=== PATIENT | female | born 2005 | race Caucasian/White ===

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

== ENCOUNTER 2024-02-17 05:09 | Emergency (ER) | payer OTHER, SELFPAY ==
[2024-02-17 05:25] VITALS: BP 118/56; PULSE 87; RESP 16; TEMP 36.6; O2SAT 99; BMI 23.3
--- NOTE | 2024-02-17 05:29 | ED_ITS ---
HPI - General Adult General Chief complaint: Urogenital-Female Stated complaint: uti Time Seen by Provider: 02/17/24 05:11 Source: patient Mode of arrival: Ambulatory History of Present Illness HPI narrative: 19-year-old female with 3 days of dysuria, frequency, urgency. No back pain. No fevers. No vomiting. No vaginal bleeding. No change in bowel habits. Had a urinary tract infection 1 year ago. Symptoms improved after antibiotics. Has been on [id number] azo for the discomfort for the past 3 days. Related Data Previous Rx's Medication Instructions Recorded nitrofurantoin 100 mg PO Q12H 5 days #10 caps 02/17/24 monohydrate/macrocrystals 100 mg capsule (Macrobid) Allergies Allergy/AdvReac Type Severity Reaction Status Date / Time No Known Drug Allergies Allergy Verified 01/10/23 06:01 Review of Systems Review of Systems Narrative: See HPI Patient History Medical History POTS (postural orthostatic tachycardia syndrome) Social History Smoking Status: Current every day smoker Smoking Status: Current every day smoker tobacco type: vaping alcohol intake frequency: 0-2 drinks per day Exam Initial Vital Signs Initial Vital Signs: Vital Signs Temperature 97.8 F 02/17/24 05:25 Pulse Rate 87 02/17/24 05:25 Respiratory Rate 16 02/17/24 05:25 Blood Pressure 118/56 L 02/17/24 05:25 Pulse Oximetry 99 02/17/24 05:25 Oxygen Delivery Method Room Air 02/17/24 05:25 Const General: cooperative and comfortable HENMT Head: normal to inspection and normocephalic GI Inspection: non-distended Back/Spine/Pelvis Back: No CVA tenderness Course Orders Ordered: ED Orders 02/17/24 05:14 Urine Microscopic Stat Discontinued Medications Nitrofurantoin Macrocrystals (Nitrofurantoin Er 100 Mg Capsule) 100 mg PO NOW ONE Stop: 02/17/24 05:30 Vital Signs Vital signs: Vital Signs - 8 hr 02/17/24 05:25 Temperature 97.8 F Pulse Rate 87 Respiratory Rate 16 Blood Pressure 118/56 L Pulse Oximetry 99 Oxygen Delivery Method Room Air Medical Decision Making Medical Records Medical records reviewed: Yes I reviewed the patient's medical records. Lab Data Lab results reviewed: Yes I reviewed the patient's lab results. Labs: Point of Care Testing Test Results Negative Urine Dip Bedside Urine Glucose 500 mg/dl Bedside Urine Bilirubin +++ 4 Bedside Urine Ketone ++ 40 Urine Specific [place] 1.025 Bedside Urine Occult Blood +++ Bedside Urine pH 5.0 Bedside Urine Protein +++ 300 Bedside Urine Urobilinogen 3+ 8mg Bedside Urine Nitrite + Positive Bedside Urine Leukocytes +++ 500 Esterase Point of care testing: Point of Care Testing Test Results Negative Urine Dip Bedside Urine Glucose 500 mg/dl Bedside Urine Bilirubin +++ 4 Bedside Urine Ketone ++ 40 Urine Specific [place] 1.025 Bedside Urine Occult Blood +++ Bedside Urine pH 5.0 Bedside Urine Protein +++ 300 Bedside Urine Urobilinogen 3+ 8mg Bedside Urine Nitrite + Positive Bedside Urine Leukocytes +++ 500 Esterase MDM Narrative Medical decision making narrative: History and physical exam and urinalysis consistent with a UTI. Low suspicion for pyelonephritis based on her exam. Tolerating oral intake. Urine culture pending at the time of discharge. Review of her medical record shows that she had a pansensitive E coli approximately 1 year ago. Will start on Macrobid. First dose given here in the emergency department. Prescription sent to pharmacy of her choice. She was given return precautions. She expressed understanding and agreement with the plan. Discharge Plan Departure Patient Disposition: Home Clinical Impression: Urinary tract infection Instructions: DI for Urinary Tract Infection (UTI) Activity Restrictions/Additional Instructions: There is a urine culture pending at the time of your discharge and we will contact you if we need to change any antibiotics based on the results of this. Start taking the antibiotics that you were prescribed this morning as directed. Return to the emergency department for new or worsening symptoms. Prescriptions: New nitrofurantoin monohyd/m-cryst [Macrobid] 100 mg capsule 100 mg PO Q12H 5 Days Qty: 10 0RF Rx Instructions: must administer with a meal/food Referrals: Arsalan Vinson MD [Primary Care Provider] - Stand Alone Forms: Patient Portal/API/Survey
[2024-02-17] MEDS: NITROFURANTOIN ER 100 MG CAPSULE PO (05:33)
[2024-02-17 05:38] LABS: Bacteria Urine Occasional (0-1); Culture Indicated Urine Specimen Cultured; RBC Urine >100/HPF (0-5/HPF); Squamous Epithelial Cell Urine 1-5 /HPF (0-5/HPF); Urine Volume 10mL (spun); WBC Urine 10-30/HPF (0-5/HPF)
== END 2024-02-17 05:40 | disposition home or self-care (01) ==
PROVIDERS: Emergency Provider Emergency Medicine; PCP Pediatrics
DX: N39.0 Urinary tract infection, site not specified (principal)
CPT/HCPCS: 81003; 81015; 81025; 87086; 99283

== ENCOUNTER 2024-05-28 13:37 | Emergency (ER) | payer OTHER, SELFPAY ==
[2024-05-28 13:43] VITALS: BP 115/68; PULSE 83; RESP 16; TEMP 36.5; O2SAT 98; BMI 22.2
--- NOTE | 2024-05-28 15:00 | ED_ITS ---
HPI - General Adult <Ashley Agarwal PA-C - Last Filed: 05/28/24 16:29> General Chief complaint: Abdominal Pain Stated complaint: Lower stomach pain . sent from [facility] Time Seen by Provider: 05/28/24 14:03 Source: patient Mode of arrival: Ambulatory History of Present Illness HPI narrative: 19-year-old female presents to the ED with 3 weeks of right-sided lower back pain radiating sometimes to the front. No fever, chills, chest pain, shortness of breath, nausea, vomiting, diarrhea, constipation, dysuria, lightheadedness, dizziness, syncope. Patient is on control Sprintec. Patient is concerned that her symptoms are due to ovarian cysts. Patient states that she has never had an ultrasound or been tested for it. No trauma. Related Data Allergies Allergy/AdvReac Type Severity Reaction Status Date / Time No Known Drug Allergies Allergy Verified 01/10/23 06:01 Review of Systems <Ashley Agarwal PA-C - Last Filed: 05/28/24 16:29> Constitutional Constitutional: Denies chills, Denies fatigue, Denies fever(s), Denies frequent falls, Denies lethargy and Denies weakness Eyes Eyes: Denies change in vision, Denies eye discharge, Denies irritation and Denies loss of vision ENT Ears, Nose, Mouth, and Throat: Denies change in voice, Denies dizziness, Denies neck pain, Denies sore throat and Denies throat swelling Cardiovascular Cardiovascular: Denies chest pain, Denies irregular heart rhythm, Denies lightheadedness, Denies palpitations, Denies dyspnea, Denies dyspnea on exertion and Denies orthopnea Respiratory Respiratory: Denies cough, Denies dyspnea, Denies dyspnea on exertion and Denies wheezing Gastrointestinal Gastrointestinal: Denies abdominal pain, Denies change in bowel habits, Denies diarrhea, Denies nausea and Denies vomiting Musculoskeletal Musculoskeletal: Reports back pain, Denies neck pain and Denies numbness Integumentary/Breasts Skin/Breast: Denies pruritus, Denies erythema, Denies rash and Denies wounds Neurologic Neurologic: Denies behavioral changes, Denies confusion, Denies dizziness, Denies frequent falls, Denies loss of vision, Denies numbness and Denies weakness Psychiatric Psychiatric: Denies anxiety, Denies behavioral changes, Denies confusion, Denies depression, Denies homicidal ideation and Denies suicidal ideation Endocrine Endocrine: Denies fatigue, Denies flushing and Denies palpitations Hematologic/Lymphatic Hematologic/Lymphatic: Denies easy bruising Allergic/Immunologic Allergic/Immunologic: Denies urticaria, Denies throat swelling and Denies wheezing Patient History <Ashley Agarwal PA-C - Last Filed: 05/28/24 16:29> Medical History POTS (postural orthostatic tachycardia syndrome) tobacco type: vaping alcohol intake frequency: 0-2 drinks per day Exam <Ashley Agarwal PA-C - Last Filed: 05/28/24 16:29> Narrative Exam Narrative: Const General:?cooperative, healthy appearing and comfortable HENTX Head:?normal to inspection Ears:?hearing grossly normal bilaterally Nose:?external nose normal Face and sinus:?normal facial exam and sinuses nontender Mouth:?oral mucosae normal Throat:?posterior oropharynx normal Eyes General:?appearance normal, both eyes and all related structures Neck Neck:?normal visual inspection and no lymphadenopathy noted Resp Effort & Inspection:?normal respiratory effort Auscultation:?clear to auscultation bilaterally Cardio Rate:?regular rate Rhythm:?regular rhythm GI Abdomen is soft, nontender, nondistended. No CVA tenderness Neuro General:?patient alert, patient awake and patient oriented x3 Initial Vital Signs Initial Vital Signs: Vital Signs Temperature 97.7 F 05/28/24 13:43 Pulse Rate 83 05/28/24 13:43 Respiratory Rate 16 05/28/24 13:43 Blood Pressure 115/68 05/28/24 13:43 Pulse Oximetry 98 05/28/24 13:43 Oxygen Delivery Method Room Air 05/28/24 13:43 <Johnathan Velasquez MD - Last Filed: 05/29/24 07:07> Initial Vital Signs Initial Vital Signs: Vital Signs Temperature 97.7 F 05/28/24 13:43 Pulse Rate 83 05/28/24 13:43 Respiratory Rate 16 05/28/24 13:43 Blood Pressure 115/68 05/28/24 13:43 Pulse Oximetry 98 05/28/24 13:43 Oxygen Delivery Method Room Air 05/28/24 13:43 Course <Ashley Agarwal PA-C - Last Filed: 05/28/24 16:29> Vital Signs Vital signs: Vital Signs - 8 hr 05/28/24 13:43 Temperature 97.7 F Pulse Rate 83 Respiratory Rate 16 Blood Pressure 115/68 Pulse Oximetry 98 Oxygen Delivery Method Room Air <Johnathan Velasquez MD - Last Filed: 05/29/24 07:07> Vital Signs Vital signs: Vital Signs - 8 hr 05/28/24 13:43 Temperature 97.7 F Pulse Rate 83 Respiratory Rate 16 Blood Pressure 115/68 Pulse Oximetry 98 Oxygen Delivery Method Room Air Medical Decision Making <Ashley Agarwal PA-C - Last Filed: 05/28/24 16:29> MDM Narrative Medical decision making narrative: 19-year-old female presents to the ED with 3 weeks of right-sided lower back pain radiating sometimes to the front. Given patient's presentation, physical exam, unlikely ovarian cysts. Patient's symptoms are more likely consistent with a musculoskeletal sprain/strain of the lower back. Benign abdomen. Counseled patient on ovarian cysts, rupture and symptoms. Recommend follow-up with PCP, taking ibuprofen, Tylenol for symptoms. ED return precautions were discussed with patient. Patient verbalized understanding. Medical records reviewed: Yes Discharge Plan Departure Patient Disposition: Home Clinical Impression: Back pain Qualifiers: Back pain location: low back pain Chronicity: acute Back pain laterality: right Sciatica presence: without sciatica Qualified Code(s): M54.50 - Low back pain, unspecified Instructions: DI for Low Back Pain Activity Restrictions/Additional Instructions: You were evaluated in the ED today for lower back pain. Your symptoms are likely due to a back muscle strain. You may take Tylenol, ibuprofen for pain relief. Please follow-up with your PCP as soon as possible. Return to the ED if you have worsening symptoms, numbness, tingling, weakness, urinary difficulties. Referrals: Arsalan Vinson MD [Primary Care Provider] - Stand Alone Forms: Patient Portal/API/Survey ED Sign-out <Johnathan Velasquez MD - Last Filed: 05/29/24 07:07> Cosign ED Attending Annabelleature Attestation: I was immediately available in the department for consultation. This documentation has been reviewed and I agree with assessment and plan. Supervised by Johnathan Velasquez MD
== END 2024-05-28 14:59 | disposition home or self-care (01) ==
PROVIDERS: Emergency Provider Student in an Organized Health Care Education/Training Program; PCP Pediatrics
DX: M54.50 Low back pain, unspecified (principal)
CPT/HCPCS: 99281

== ENCOUNTER 2024-11-17 20:30 | Emergency (ER) | payer OTHER, SELFPAY ==
[2024-11-17 20:53] VITALS: BP 116/61; PULSE 81; RESP 17; TEMP 37.1; O2SAT 98; BMI 26.6
[2024-11-17 21:13] VITALS: BP 116/61; PULSE 72; O2SAT 98
[2024-11-17 21:30] VITALS: PULSE 63; O2SAT 98
[2024-11-17 22:00] VITALS: PULSE 62; O2SAT 98
[2024-11-17 22:30] VITALS: PULSE 67; O2SAT 98
== END 2024-11-17 23:13 | disposition left against medical advice (07) ==
PROVIDERS: Emergency Provider Emergency Medicine; PCP Pediatrics
CPT/HCPCS: 99281